=== PATIENT | female | born 1980 | race Caucasian/White ===

== ENCOUNTER 2016-12-09 08:23 | Day surgery (SDC) | payer OTHER ==
[~2016-12-09] VITALS: Ht 152.4 cm; Wt 72.9 kg
[~2016-12-09 08:23] MED LIST: AMOXICILLIN/CLA1 TA1 PO; ASTELIN NASAL S34 ML; ATROVENTNS0.03% NS; FLAGYL500 MG PO; FLONASEALLERGY NS; LAC-HYDRIN LOT 225GM TP; OMNICEF 300MG300 MG PO; PATANOL OPHTHALM5 ML; PROAIR HFA0.09 MG/AC IH; ROBITUSSIN DM 105 ML PO; RT ADVAIR 128 DISKUS IH; RT SPIRIVA18 MCG IH; SINGULAIR 110 MG/TAB PO; SUDAFED30 MG PO; TRINESSA 281 TAB; ZANTAC 150MG T150 MG PO; ZYRTEC 10MG10 MG PO
[2016-12-09 09:07] VITALS: BP 105/60; PULSE 87; TEMP 98.4
[2016-12-09] MEDS ORDERED: RT ADVAIR 228 DISKUS IH (09:31)
[2016-12-09] MEDS ORDERED: IPRATROPIUM BROM3 M1 IH (09:31)
[2016-12-09 10:30] VITALS: BP 104/88; PULSE 83; TEMP 98.1
[2016-12-09 10:45] VITALS: BP 106/50; PULSE 91
[2016-12-09 11:00] VITALS: BP 105/58; PULSE 90
[2016-12-09 11:15] VITALS: BP 112/65; PULSE 92
[2016-12-09 13:27] VITALS: BP 106/60; PULSE 108
[2016-12-09 15:12] LABS: BRONCH WASH FLUID MONONUCLEAR 84 % (0-75); BRONCH WASH POLY - PMN 16 % (0-25)
== END 2016-12-09 11:30 | disposition home or self-care (01) ==
LOC: SDCO 08:23
PROVIDERS: Internal Medicine Pulmonary Disease
DX: R06.02 Shortness of breath (principal); R05 Cough
CPT/HCPCS: J2704; J7120